=== PATIENT | male | born 1960 | race Caucasian/White ===

== ENCOUNTER 2018-07-22 12:49 | Outpatient (CLI) | payer OTHER | END 2018-07-22 12:50 | disposition critical access hospital (66) | LOC: EMS 12:49 | PROVIDERS: ATTEND Surgery | DX: R06.00 Dyspnea, unspecified (principal); R06.02 Shortness of breath; R05 Cough; J45.909 Unspecified asthma, uncomplicated; Z79.51 Long term (current) use of inhaled steroids | CPT/HCPCS: A0425; A0427 ==

== ENCOUNTER 2018-07-22 13:14 | Emergency (ER) | payer OTHER ==
--- NOTE | 2018-07-22 13:45 | ED Physician Documentation ---
PD HPI URI - Stated complaint Stated Complaint: SOA - Chief complaint Chief Complaint: Resp - History obtained from History obtained from: Patient - History of Present Illness Timing - onset: How many days ago (He has had several days of increasing cough with green sputum and wheezing. History of asthma and states he will have an episode like this once or twice a year with infections.) Timing duration: Days Timing details: Gradual onset, Still present Associated symptoms: Chills, Nasal congestion, Sore throat, Productive cough, Dyspnea. No: Fever, NVD Contributing factors: Sick contact, Travel (started with URI symptoms in [place] at home, and worse after arriving here, visiting daughter.), COPD / asthma Improves by: MDI/nebulizer Worsened by: Activity Similar symptoms before: Diagnosis (asthma exac with infections. Baseline does not need nebulizer/inhaler regularly.) Recently seen: Not recently seen Review of Systems Constitutional: reports: Chills, Myalgias. denies: Fever Nose: reports: Congestion Throat: reports: Sore throat Cardiac: denies: Chest pain / pressure, Palpitations, Pedal edema, Calf pain Respiratory: reports: Dyspnea, Cough GI: denies: Abdominal Pain, Nausea, Vomiting, Diarrhea Skin: denies: Rash Neurologic: reports: Generalized weakness. denies: Altered mental status, Headache PD PAST MEDICAL HISTORY - Past Medical History Cardiovascular: None Respiratory: Asthma Neuro: None Endocrine/Autoimmune: Type 2 diabetes (he says his sugars have been higher 100s, and he gets into 200s with steroids in the past. Has not had higher than that with steroids. ) - Present Medications Home Medications: Ambulatory Orders Medication Instructions Recorded Confirmed Benzonatate [Tessalon Perle] 100 - 200 mg PO TID PRN #30 capsule 07/22/18 Carvedilol 07/22/18 Cyclobenzaprine HCl 07/22/18 Dexamethasone [Decadron] 4 mg PO DAILY #5 tablet 07/22/18 Doxycycline Hyclate 100 mg PO BID #20 capsule 07/22/18 Insulin Glargine [Lantus Solostar] 07/22/18 Ipratropium [Atrovent] 0.5 mg INH Q6H #30 neb 07/22/18 Lisinopril 07/22/18 Spironolactone 07/22/18 metFORMIN [Glucophage] 07/22/18 - Allergies Allergies/Adverse Reactions: Allergies Allergy/AdvReac Type Severity Reaction Status Date / Time codeine Allergy Intermediate Nausea Verified 07/22/18 13:25 azithromycin Allergy Anaphylaxis Verified 07/22/18 13:25 PD ED PE NORMAL - Vitals Vital signs reviewed: Yes - General General: Alert and oriented X 3, No acute distress, Well developed/nourished - HEENT HEENT: Ears normal, Moist mucous membranes, Pharynx benign - Neck Neck: Supple, no meningeal sign, No adenopathy - Cardiac Cardiac: RRR, No murmur - Respiratory Respiratory: No: Clear bilaterally (diffuse exp wheezing with partial sentence dyspnea. No retractions. ) - Abdomen Abdomen: Soft, Non tender - Back Back: No CVA TTP - Derm Derm: Normal color - Extremities Extremities: No tenderness to palpate, Normal ROM s pain, No edema, No calf tenderness / cord - Neuro Neuro: Alert and oriented X 3, No motor deficit, Normal speech Results - Vitals Vitals: Vital Signs - 24 hr 07/22/18 07/22/18 07/22/18 13:17 13:24 14:20 Temperature 35.9 C L Heart Rate 92 84 83 Respiratory 23 23 16 Rate Blood Pressure 136/92 H 134/92 H O2 Saturation 99 98 98 07/22/18 07/22/18 07/22/18 14:30 14:49 15:29 Temperature Heart Rate 84 83 82 Respiratory 21 20 24 Rate Blood Pressure 132/88 H 140/87 H O2 Saturation 91 L 93 07/22/18 07/22/18 16:00 16:15 Temperature Heart Rate 83 83 Respiratory 20 18 Rate Blood Pressure 146/88 H O2 Saturation 93 Oxygen O2 Source Room air - Labs Labs: Laboratory Tests 07/22/18 07/22/18 07/22/18 14:44 14:44 14:44 WBC 12.5 H RBC 5.30 Hgb 14.7 Hct 44.7 MCV 84.4 MCH 27.7 MCHC 32.8 RDW 14.8 Plt Count 262 MPV 8.3 Neut # (Auto) 9.2 H Lymph # (Auto) 1.9 [place] # (Auto) 1.0 Eos # (Auto) 0.5 Baso # (Auto) 0.1 Absolute Nucleated RBC 0.01 Nucleated RBC % 0.0 Sodium 136 Potassium 4.2 Chloride 104 Carbon Dioxide 25 Anion Gap 7.0 BUN 14 Creatinine 0.7 Estimated GFR (MDRD) 117 Glucose 128 H Calcium 8.7 Magnesium 2.0 Total Bilirubin 0.7 AST 24 ALT 36 Alkaline Phosphatase 69 B-Natriuretic Peptide 59 Total Protein 7.5 Albumin 3.9 Globulin 3.6 Albumin/Globulin Ratio 1.1 Lipase 21 L PD MEDICAL DECISION MAKING - ED course Complexity details: re-evaluated patient (still wheezing but lying comfortable and dozing, sats good. ), considered differential, d/w patient Departure - Departure Disposition: 01 Home, Self Care Clinical Impression: Acute dyspnea, Acute exacerbation of extrinsic asthma Bronchitis, acute Qualifiers: Bronchitis organism: unspecified organism Qualified Code(s): J20.9 - Acute bronchitis, unspecified Condition: Stable Record reviewed to determine appropriate education?: Yes Instructions: ED Bronchitis Asthmatic Prescriptions: Benzonatate [Tessalon Perle] 100 - 200 mg PO TID PRN #30 capsule PRN Reason: Cough Dexamethasone [Decadron] 4 mg PO DAILY #5 tablet Doxycycline Hyclate 100 mg PO BID #20 capsule Ipratropium [Atrovent] 0.5 mg INH Q6H #30 neb Comments: No signs of pneumonia nor heart failure on x-ray. Your blood tests are good. Continue your albuterol nebulizer. To that you could add Atrovent to 3 times a day. Decadron steroid daily for 7 days for the inflammation of the airways. Adjust your insulin as needed to compensate. Stay well-hydrated. Doxycycline twice daily for 10 days for presumed bacterial infection. Add Tessalon if needed for cough. Return if worsening. Discharge Date/Time: 07/22/18 16:35
[2018-07-22] MEDS ORDERED: IPRATROPIUM/ALBUTEROL 3 ML NEB INH STA (14:23)
[2018-07-22] MEDS ORDERED: cefTRIAXone 1 GM VIAL IVP STA (14:25)
[2018-07-22] MEDS ORDERED: DOXYCYCLINE 100 MG TABLET PO STA (14:25)
[2018-07-22] MEDS ORDERED: DEXAMETHASONE 10 MG/ML VIAL IVP STA (14:25)
[2018-07-22 15:14] LABS: BASOPHILS # (AUTO) 0.1 10^3/uL (0.0-0.1); BASOPHILS % (AUTO) 0.4 %; EOSINOPHILS # (AUTO) 0.5 10^3/uL (0.0-0.7); EOSINOPHILS % (AUTO) 3.8 %; HGB - HEMOGLOBIN 14.7 g/dL (14.0-18.0); LYMPHOCYTES # (AUTO) 1.9 10^3/uL (1.5-3.5); LYMPHOCYTES % (AUTO) 14.9 %; MEAN CORPUSCULAR HEMOGLOBIN 27.7 pg (27.0-31.0); MEAN CORPUSCULAR HGB CONC 32.8 g/dL (32.0-36.0); MEAN CORPUSCULAR VOLUME 84.4 fL (80.0-94.0); MEAN PLATELET VOLUME 8.3 fL (7.4-11.4); MONOCYTES % (AUTO) 7.8 %; NEUTROPHILS # (AUTO) 9.2 10^3/uL (1.5-6.6); NEUTROPHILS % (AUTO) 73.1 %; PLT - PLATELET COUNT 262 10^3/uL (130-450); RED CELL DISTRIBUTION WIDTH 14.8 % (12.0-15.0); WHITE BLOOD COUNT 12.5 x10^3/uL (4.8-10.8)
[2018-07-22 15:23] LABS: ALBUMIN 3.9 g/dL (3.2-5.5); ALBUMIN/GLOBULIN RATIO 1.1 (1.0-2.2); BILIRUBIN,TOTAL 0.7 mg/dL (0.2-1.0); CALCIUM 8.7 mg/dL (8.5-10.3); CREATININE 0.7 mg/dL (0.6-1.2); TOTAL PROTEIN 7.5 g/dL (6.7-8.2)
--- NOTE | 2018-07-22 15:33 | XRAY Report ---
Reason: cough and wheezing Procedure Date: 07/22/2018 Accession Number: [id number] / [id number] Procedure: XR - Chest 2 View X-Ray CPT Code: 72158 FULL RESULT: EXAM: CHEST RADIOGRAPHY EXAM DATE: 07/22/2018 03:04 PM. CLINICAL HISTORY: Cough and wheezing. COMPARISON: None. TECHNIQUE: 2 views. FINDINGS: Grid artifact on frontal view and respiratory motion artifact on lateral view mildly degrade diagnostic quality of exam. Lungs/Pleura: Trace bilateral perihilar peribronchial thickening. No consolidation.. No pleural effusion or pneumothorax. Mediastinum: Heart size upper limits of normal. Other: Left subclavian pacemaker lead tip in the right ventricular apex. IMPRESSION: Trace bilateral peribronchial thickening may represent viral illness and/or reactive airways disease. [facility]
[2018-07-22] MEDS ORDERED: ALBUTEROL NEB 2.5 MG/3 ML INH STA (15:38)
[2018-07-22 16:17] VITALS: BP 146/88
== END 2018-07-22 16:35 | disposition home or self-care (01) ==
LOC: ED 13:14
DX: J20.9 Acute bronchitis, unspecified (principal); J45.901 Unspecified asthma with (acute) exacerbation; E11.9 Type 2 diabetes mellitus without complications; Z79.4 Long term (current) use of insulin
CPT/HCPCS: 36415; 71046; 80053; 83690; 83735; 83880; 85025; 94640; 96374; 96375; 99283; A9270; 93005